=== PATIENT | female | born 1980 | race Caucasian/White ===

== ENCOUNTER 2017-04-07 15:42 | Emergency (ER) | payer OTHER ==
[2017-04-07 16:07] LABS: URINE HCG POC HCG NEGATIVE (Negative)
[2017-04-07] MEDS: cloNIDine TTS-2 1 PATCH PATCH TD (17:44)
[2017-04-07] MEDS: cloNIDine HCL 0.1 MG TABLET PO (17:45)
[2017-04-07] MEDS: ONDANSETRON ODT 4 MG TAB.RAPDIS. PO (17:45)
== END 2017-04-07 18:09 | disposition home or self-care (01) ==
LOC: ER 15:42
DX: F32.9 Major depressive disorder, single episode, unspecified (principal); F11.23 Opioid dependence with withdrawal; R45.851 Suicidal ideations; G89.29 Other chronic pain; F31.9 Bipolar disorder, unspecified; F41.9 Anxiety disorder, unspecified; Z88.8 Allergy status to other drugs, medicaments and biological substances
CPT/HCPCS: 81025; 99284; Q0162

== ENCOUNTER 2017-04-14 13:52 | Emergency (ER) | payer OTHER ==
[2017-04-14 14:34] LABS: BILIRUBIN,URINE NEGATIVE (NEG); CLARITY,URINE CLEAR; COLOR,URINE YELLOW; GLUCOSE,URINE NEGATIVE (NEG); NITRITE,URINE NEGATIVE (NEG); PH,URINE 6.5; PROTEIN,URINE NEGATIVE (NEG-TRACE); UROBILINOGEN,URINE 0.2 mg/dL (0.2 mg/dL)
[2017-04-14] MEDS: IV NORMAL SALINE 1000ML BAG 1,000 ML IV ×2 (14:51)
[2017-04-14] MEDS: KETOROLAC 30 MG/ML INJ. IV ×2 (14:51)
[2017-04-14 14:57] LABS: BACTERIA,URINE MANY /HPF (0-FEW); RBC,URINE 0 /HPF (0-2); SQUAMOUS EPITHELIAL CELL,UR MOD /LPF
[2017-04-14] MEDS: ONDANSETRON PF 4 MG/2 ML VIAL. IV ×2 (15:00)
[2017-04-14 15:09] LABS: ADD MAN DIFF? NO; INFLUENZA A PATIENT NEGATIVE (NEGATIVE); INFLUENZA B PATIENT NEGATIVE (NEGATIVE); OBC FLU VALID
[2017-04-14 15:11] LABS: BASO % 1 % (0-3); EOS # 0.1 x10^3/uL (0.0-0.7); EOS % 1 % (0-3); HEMATOCRIT 39.2 % (36.0-47.0); HEMOGLOBIN 13.7 g/dL (12.0-15.5); LYMPH % 29 % (24-48); MEAN CORPUSCULAR HEMOGLOBIN 33 pg (25-35); MEAN CORPUSCULAR HGB CONC 35 g/dL (31-37); MEAN CORPUSCULAR VOLUME 94 fL (79-100); MONO # 0.7 x10^3/uL (0.0-1.1); MONO % 7 % (0-9); NEUT # 6.4 x10^3uL (1.8-7.7); NEUT % 62 % (31-73); PLATELET COUNT 316 x10^3/uL (140-400); RED BLOOD COUNT 4.15 x10^6/uL (3.50-5.40); RED CELL DISTRIBUTION WIDTH 13.2 % (11.5-14.5); WHITE BLOOD COUNT 10.3 x10^3/uL (4.0-11.0)
[2017-04-14 15:17] LABS: NEG OBC UR NEG; POS OBC UR POS; U PREG PATIENT NEGATIVE (NEG)
[2017-04-14] MEDS: ACETAMINOPHEN 500 MG TABLET PO ×2 (15:18)
[2017-04-14 15:29] LABS: ANION GAP 9 (6-14); BLOOD UREA NITROGEN 12 mg/dL (7-20); BUN/CREATININE RATIO 17 (6-20); CALCIUM 8.7 mg/dL (8.5-10.1); CARBON DIOXIDE 26 mmol/L (21-32); CHLORIDE 104 mmol/L (98-107); CREATININE 0.7 mg/dL (0.6-1.0); GFR 93.6; GLUCOSE 108 mg/dL (70-99); POTASSIUM 3.9 mmol/L (3.5-5.1); SODIUM 139 mmol/L (136-145)
[2017-04-14 15:35] LABS: ALBUMIN 3.9 g/dL (3.4-5.0); ALBUMIN/GLOBULIN RATIO 1.2 (1.0-1.7); ALK PHOS 72 U/L (46-116); ALT (SGPT) 17 U/L (14-59); AST (SGOT) 8 U/L (15-37); LIPASE 147 U/L (73-393); TOTAL BILIRUBIN 0.2 mg/dL (0.2-1.0); TOTAL PROTEIN 7.2 g/dL (6.4-8.2)
[2017-04-14] MEDS: HALOPERIDOL LACTATE 5 MG/ML VIAL. IVP ×2 (15:35)
[2017-04-14 15:39] LABS: TROPONINI < 0.017 ng/mL (0.000-0.055)
== END 2017-04-14 16:29 | disposition home or self-care (01) ==
LOC: ER 13:52
DX: N39.0 Urinary tract infection, site not specified (principal); F41.9 Anxiety disorder, unspecified; F31.9 Bipolar disorder, unspecified; F17.200 Nicotine dependence, unspecified, uncomplicated; Z98.51 Tubal ligation status; Z88.8 Allergy status to other drugs, medicaments and biological substances
CPT/HCPCS: 36415; 71045; 80053; 81001; 81025; 83690; 84484; 85025; 87086; 87804; 87804-59; 93005; 96361; 96374; 96375; 99285-25; J1630; J1885; J2405; J7030

== ENCOUNTER 2017-07-30 13:20 | Emergency (ER) | payer OTHER ==
[2017-07-30] MEDS: LIDOCAINE WITH 8.4% SOD BICARB 3 ML DISP.SYRIN. INJ (13:51)
== END 2017-07-30 14:25 | disposition home or self-care (01) ==
LOC: ER 13:20
DX: S70.361A Insect bite (nonvenomous), right thigh, initial encounter (principal); L02.415 Cutaneous abscess of right lower limb; L03.115 Cellulitis of right lower limb; Z88.8 Allergy status to other drugs, medicaments and biological substances; W57.XXXA Bitten or stung by nonvenomous insect and other nonvenomous arthropods, initial encounter; Y93.89 Activity, other specified; Y99.8 Other external cause status; Y92.89 Other specified places as the place of occurrence of the external cause
CPT/HCPCS: 10060; 99283-25